=== PATIENT | female | born 1995 | race American Indian/Alaskan Native ===

== ENCOUNTER 2021-05-09 10:01 | Outpatient (CLI) | payer MEDICAID ==
[2021-05-09 10:43] VITALS: BP 114/60
[2021-05-09 11:13] LABS: Bilirubin,Urine NEG (Negative); Blood,Urine NEG (Negative); Color,Urine Yellow (Yellow); Mucus,Urine FEW /HPF; Protein,Urine <15 mg/dL mg/dL (Negative); Urobilinogen,Urine < 2.0 mg/dL (<2.0)
[2021-05-09] MEDS ORDERED: LACTATED RINGERS 500 ML IV ONE (11:30)
== END 2021-05-09 13:30 | disposition home or self-care (01) ==
LOC: TRG 10:01 → APU 10:03 → TRG 13:30
PROVIDERS: ATTEND Obstetrics & Gynecology
DX: R10.9 Unspecified abdominal pain (principal)
CPT/HCPCS: 81001